=== PATIENT | male | born 1955 | race Caucasian/White ===

== ENCOUNTER 2024-01-07 18:39 | Emergency (ER) | payer MEDICARE, SELFPAY ==
[2024-01-07 18:41] VITALS: BP 165/104
[2024-01-07 19:23] VITALS: BMI 42.2
[2024-01-07 19:34] VITALS: BP 142/67
[2024-01-07 19:43] LABS: % Basophils 0.7 % (0-2); % Eosinophils 0.5 % (0-6); % Immature Granulocytes 0.5 % (0-0.5); % Lymphocytes 16.7 % (20.5-51.1); % Monocytes 7.6 % (1.7-9.3); Absolute Basophils 0.1 10^3/uL (0-0.2); Absolute Lymphocytes 1.4 10^3/uL (1.2-3.4); Absolute Monocytes 0.6 10^3/uL (0.1-0.6); Hematocrit 44.4 % (39.0-52.0); Hemoglobin 15.6 g/dL (13.0-18.0); Mean Corp Hgb Conc. 35.1 g/dL (33.0-37.0); Mean Corpuscular Hgb 30.1 pg (27.0-31.0); Mean Corpuscular Volume 85.5 fL (80.0-94.0); Mean Platelet Volume 9.4 fL (7.4-10.4); Nucleated Red Blood Cells % 0 % (-); Platelet Count 292 10^3/uL (130-400); Red Blood Cell Count 5.19 10^6/uL (4.70-6.10); Red Cell Dist. Width 12.6 % (11.5-14.5); White Blood Cell Count 8.2 10^3/uL (4.8-10.8)
[2024-01-07 19:56] LABS: ALT (SGPT) 23 U/L (0-50); AST (SGOT) 29 U/L (17-59); Albumin 4.6 g/dl (3.5-5.0); Alkaline Phosphatase 214 U/L (38-126); Blood Urea Nitrogen 26 mg/dl (9-20); Calcium 9.2 mg/dl (8.4-10.2); Carbon Dioxide 22 mmol/L (22-30); Chloride 103 mmol/L (98-107); Estimated Creatinine Clearance 91 ml/min; Glucose 136 mg/dl (70-99); Potassium 4.2 mmol/L (3.5-5.1); Sodium 140 mmol/L (135-145); Total Bilirubin 0.4 mg/dl (0.2-1.3); Total Protein 7.6 g/dl (6.3-8.2); eGFR > 60.00
[2024-01-07 20:00] VITALS: BP 122/74
--- NOTE | 2024-01-07 20:09 | ED.GENMED ---
History of Present Illness
General
Chief Complaint: Dizziness
Source: patient
Exam Limitations: none
Time Seen by Provider: 01/07/24 19:24
History of Present Illness
History of Present Illness:
This is a 68 year old male that comes in with c/o dizziness. States that this started at 3pm today and he has nausea and vomiting. States that the room was spinning. States that he broke out into a sweat when it first started. States that he is
nervous and is having palpitations. Denies any fever, chills, chest pain, SOB, abd pain, diarrhea, headache, urinary burning.
Past History
Past History
ED Past Medical History: HTN
ED Past Surgical History: Orthopedic (Left ankle surgery)
Social History
Tobacco: Smoker
Alcohol: Daily (Scotch 1-2 glasses)
Personal: (Same sex partner)
Living: with family
Review of Systems
Review of Systems
All Other Systems: ROS reviewed and negative except as documented in HPI and ROS
Constitutional: Reports no symptoms; Denies fever or chills
EENT: Reports no symptoms
Respiratory: Reports no symptoms; Denies cough or trouble breathing
Cardiac: Reports no symptoms; Denies chest pain
ABD/GI: Reports nausea and vomiting; Denies abdominal pain or diarrhea
: Reports no symptoms; Denies dysuria, frequency or urgency
Musculoskeletal: Reports no symptoms
Skin: Reports no symptoms
Neurological: Reports dizzy; Denies headache
Psychiatric: Reports no symptoms
Phy Exam
General Physical Exam
General Presentation: well appearing and no apparent distress
General age: appears stated age
General Skin: warm and dry
General Habitus: obese
General Mental: alert
General Hydration: dry mucous membranes
ENT Exam
ENT Exam: TM's normal, pharynx normal and neck supple
Eye Exam
Eye Exam: EOMI
Cardiovascular Exam
Cardiovascular Exam: regular rate/rhythm, no edema, no murmur and normal peripheral pulses
Pulmonary Exam
Pulmonary Exam: lungs clear, no respiratory distress, no rales, chest non tender, no crackles, no rhonchi, no wheezing and no cough
Gastrointestinal Exam
Gastrointestinal Exam: normal bowel sounds, non tender, soft, no organomegaly, no pulsatile mass and non distended
Musculoskeletal Exam
Musculoskeletal Exam: full ROM and no edema
Skin Exam
Skin Exam: normal color, warm/dry, no rash and no petechia
Psychiatric Exam
Psychiatric Exam: normal mood/affect
Course
Orders/Labs/Results
Orders:
Orders
01/07/24 18:49
ECG [Electrocardiogram (*1)] Urgent
Reason for Study: Vertigo / Dizzy
EKG- Treatment ONCE
01/07/24 19:35
Complete Blood Count/With Diff Urgent
Comprehensive Metabolic Panel Urgent
01/07/24 20:08
CT Head W/o Iv Contrast Urgent
Comment:
Reason For Exam: Dizziness
0.9% Sodium Chloride 500 ml [Nss] 500 ml IV BOLUS
Meclizine [Antivert] 50 mg PO NOW STA
Ondansetron Injectable [Zofran] 4 mg IV NOW STA
Abnormal Lab Results
01/07/24
19:35
Lymphocytes % 16.7 L %
(20.5-51.1)
BUN 26 H mg/dl
(9-20)
Glucose 136 H mg/dl
(70-99)
Alkaline Phosphatase 214 H U/L
(38-126)
01/07/24 19:35
01/07/24 19:35
Dehydration, Hyperglycemia. Alk phos elevation.
Vital Signs
Initial and Last Documented VS:
Initial Vital Signs
Pulse Resp BP Pulse Ox
83 20 165/104 99
01/07/24 18:41 01/07/24 18:41 01/07/24 18:41 01/07/24 18:41
Last Documented Vital Signs
Pulse Resp BP Pulse Ox
71 16 113/71 98
01/07/24 21:00 01/07/24 21:00 01/07/24 21:00 01/07/24 20:00
MDM/Problems Addressed
Differential Diagnosis Includes:
Vertigo,
MDM/Problems Addressed:
This is a 68 year old male that comes in with c/o dizziness which started at 3pm today. States that he feels like the room is spinning.
Will check labs, CT head and medicate with Zofran for his nausea/vomiting and Antivert for his dizziness.
Back into see patient. Patient states that he is feeling better. Got patient up and patient is stable on his feet and denies dizziness. Explained that this is most likely Vertigo. Will give patient a prescription for Antivert and discharge home.
Chronic conditions affecting care: HTN
Acute Exacerbation and/or Progression of Chronic Illness: HTN
*Radiology
Radiology exam reviewed: radiology read reviewed (CT head-NO CT evidence for acute intracranial hemorrhage or transcortical infarct. Moderate white matter leukoaraiosis in the frontla and parietal lobes. Mild to moderate diffuse cerebral and
cerebellar volume loss. [place] cisterna magna in the posterior fossa. No CT evidence for intracranial calcific) and other (CT cont-atherosclerotic disease. )
*Pulse Oximetry
Patient hypoxic: no
*EKG
Interpreted by ED Provider?: Yes
Heart Rate: 78
Rate: normal
Rhythm: sinus and PVC's
[place]: left axis deviation
Interval: normal interval
QRS Pattern: right bundle branch block
Ischemia: no ischemia
*Studio Set Up Worker Interpretation
Rate: normal
Heart Rate: 74
Rhythm: sinus and PVC's
*Critical Care Note
Total Time (30-74mins, 75-104mins- exclusive of procedures): Not Applicable
ED Attending Note
-
Portions of this chart may have been created with voice recognition software.� Occasional wrong word or��sound alike� substitutions may have occurred due to the inherent limitations of voice recognition software.
Discharge Plan
Departure
Patient Disposition: Home (Routine Discharge)
Date of Disposition: 01/07/24
Time of Disposition: 21:56
Patient with high blood pressure during this ER visit?: No
Condition: Good
Covid-19: Not Applicable
Discharge Problem:
Vertigo
Instructions: Vertigo (a Type of Dizziness) (DC)
Prescriptions:
New
meclizine [Antivert] 50 mg tablet
50 mg PO BID PRN (Reason: dizziness) Qty: 10 0RF
Referrals:
Earl Cobb PA-C [Family Provider] - Call in 1-3 days for appt
Activity Restrictions/Additional Instructions:
As discussed, your blood work shows that you are dehydrated. Please increase your water intake to 8-8oz glasses daily. Your CT of the head is normal. This is most likely Vertigo. You have had a prescription for Antivert sent to your pharmacy. Please
take this twice daily for the next 24-48 hours. IF you are feeling better and are no longer dizzy you may stop the medication and see how our feel. Follow up with the family doctor for recheck. IF YOU HAVE INCREASED DIZZINESS, OR YOU HAVE ANY OTHER
CONCERNS PLEASE RETURN TO THE EMERGENCY ROOM.
Interventions
Interventions:
*Risk Screen - Suicide Last Done: 01/07/24 18:45
*General Assessment Last Done: 01/07/24 18:45
*Neglect/Abuse Screening Last Done: 01/07/24 18:45
ED- Fall Risk Assessment Last Done: 01/07/24 19:35
*ED COVID-19 Vaccine History Last Done: 01/07/24 18:46
ED- Neurological Assessment Last Done: 01/07/24 19:34
ED- Cardiac Assessment Last Done: 01/07/24 19:34
ED Swallowing Screen Last Done: 01/07/24 20:10
Discharge Date and Time
Print Language: MALAY
[2024-01-07] MEDS: NSS 500 IV (20:25)
[2024-01-07] MEDS: ZOFRAN 4 MG IV (20:26)
[2024-01-07] MEDS: ANTIVERT 50 MG PO (20:26)
[2024-01-07 21:00] VITALS: BP 113/71
== END 2024-01-07 22:15 | disposition home or self-care (01) ==
LOC: EMR 18:39
PROVIDERS: Emergency Medicine; EMERGENCY PHYSICIAN Emergency Medicine; FAMILY PHYSICIAN Physician Assistant Medical
DX: R42 Dizziness and giddiness (principal); I10 Essential (primary) hypertension; F17.200 Nicotine dependence, unspecified, uncomplicated
CPT/HCPCS: 99285; 96374; 70450; 80053; 85025; 93005

== ENCOUNTER 2025-01-16 11:36 | Emergency (ER) | payer MEDICARE, SELFPAY ==
[2025-01-16] VITALS (7 sets, daily range): BP systolic 131–204; BP diastolic 77–98; BMI 38.6
--- NOTE | 2025-01-16 13:19 | ED.GENMED ---
History of Present Illness
<HNOG Barone - Last Filed: 01/19/25 12:01>
General
Chief Complaint: Heart Rate Problem
Source: patient
Exam Limitations: none
Time Seen by Provider: 01/16/25 12:45
Nursing documentation reviewed up to this point in time: agreed with
History of Present Illness
History of Present Illness:
Pt is a 69 yr old male with HTN, depression presents to the ER for evaluation. Patient reports for the past week he has had intermittent shortness of breath with exertion. He denies any chest pain. He denies any extremity swelling. He has no
cardiac history. No recent fever chills or cough.
Past History
<HONG Barone - Last Filed: 01/19/25 12:01>
Past History
ED Past Medical History: HTN
ED Past Surgical History: Orthopedic (Left ankle surgery)
Social History
Tobacco: Smoker
Alcohol: Daily (Scotch 1-2 glasses)
Personal: (Same sex partner)
Living: with family
Phy Exam
<HONG Barone - Last Filed: 01/19/25 12:01>
General Physical Exam
General Presentation: no apparent distress
General age: appears stated age
General Skin: warm and dry
General Habitus: normal
General Mental: alert
General Hydration: appears well hydrated
Cardiovascular Exam
Cardiovascular Exam: regular rate/rhythm, no murmur and normal peripheral pulses
Pulmonary Exam
Pulmonary Exam: lungs clear and no respiratory distress
Neurological Exam
Neurological Exam: alert and oriented x3
Musculoskeletal Exam
Musculoskeletal Exam: full ROM
Skin Exam
Skin Exam: normal color and warm/dry
Psychiatric Exam
Psychiatric Exam: normal mood/affect
Course
<HONG Barone - Last Filed: 01/19/25 12:01>
Orders/Labs/Results
Orders:
Orders
01/16/25 11:36
Electrocardiogram (*1) Urgent
Reason for Study: Shortness of Breath
01/16/25 11:37
EKG- Treatment ONCE
01/16/25 13:19
Complete Blood Count/With Diff Urgent
Comprehensive Metabolic Panel Urgent
Magnesium Urgent
Comment: ADD ON
NT-proBNP Urgent
Comment: ADD ON
TSH Reflex To Free T4 Urgent
Comment: ADD ON
Troponin I Urgent
01/16/25 13:20
Add On- LAB Urgent
Tests Added?: tsh with reflexive T4
01/16/25 15:13
Add On- LAB Urgent
Tests Added?: cardiac BNP
Chest [CR Chest - 2 Views ] Urgent
Comment:
Reason For Exam: SOB
01/16/25 15:18
Add On- LAB Urgent
Tests Added?: magnesium
01/16/25 16:00
D-Dimer Urgent
01/16/25 16:43
CT Chest PE Study Urgent
Comment:
Reason For Exam: dyspnea
01/16/25 17:15
Electrocardiogram (*1) Urgent
Reason for Study: Chest Pain
EKG- Treatment ONCE
01/16/25 17:29
Troponin I Urgent
Abnormal Lab Results
01/16/25 01/16/25
13:19 16:00
Absolute Monos (auto) 0.8 H 10^3/uL
(0.1-0.6)
Monocytes % 11.1 H %
(1.7-9.3)
D-Dimer 0.80 H ug/mlFEU
(0.00-0.50)
Glucose 115 H mg/dl
(70-99)
Alkaline Phosphatase 186 H U/L
(38-126)
01/16/25 13:19
01/16/25 13:19
Vital Signs
Initial and Last Documented VS:
Initial Vital Signs
Temp Pulse Resp BP Pulse Ox
98.2 F 50 16 204/94 97
01/16/25 11:47 01/16/25 11:47 01/16/25 11:47 01/16/25 11:47 01/16/25 11:47
Last Documented Vital Signs
Temp Pulse Resp BP Pulse Ox
98.2 F 74 18 144/90 98
01/16/25 18:02 01/16/25 19:22 01/16/25 19:22 01/16/25 20:37 01/16/25 18:02
Pulp Refiner Operator consulted with Physician
Pulp Refiner Operator consulted with physician?: Yes
Name of Physician Consulted: Ritah
<John Arias MD - Last Filed: 01/16/25 20:33>
Orders/Labs/Results
Orders:
Orders
01/16/25 11:36
Electrocardiogram (*1) Urgent
Reason for Study: Shortness of Breath
01/16/25 11:37
EKG- Treatment ONCE
01/16/25 13:19
Complete Blood Count/With Diff Urgent
Comprehensive Metabolic Panel Urgent
Magnesium Urgent
Comment: ADD ON
NT-proBNP Urgent
Comment: ADD ON
TSH Reflex To Free T4 Urgent
Comment: ADD ON
Troponin I Urgent
01/16/25 13:20
Add On- LAB Urgent
Tests Added?: tsh with reflexive T4
01/16/25 15:13
Add On- LAB Urgent
Tests Added?: cardiac BNP
Chest [CR Chest - 2 Views ] Urgent
Comment:
Reason For Exam: SOB
01/16/25 15:18
Add On- LAB Urgent
Tests Added?: magnesium
01/16/25 16:00
D-Dimer Urgent
01/16/25 16:43
CT Chest PE Study Urgent
Comment:
Reason For Exam: dyspnea
01/16/25 17:15
Electrocardiogram (*1) Urgent
Reason for Study: Chest Pain
EKG- Treatment ONCE
01/16/25 17:29
Troponin I Urgent
Abnormal Lab Results
01/16/25 01/16/25
13:19 16:00
Absolute Monos (auto) 0.8 H 10^3/uL
(0.1-0.6)
Monocytes % 11.1 H %
(1.7-9.3)
D-Dimer 0.80 H ug/mlFEU
(0.00-0.50)
Glucose 115 H mg/dl
(70-99)
Alkaline Phosphatase 186 H U/L
(38-126)
01/16/25 13:19
01/16/25 13:19
Vital Signs
Initial and Last Documented VS:
Initial Vital Signs
Temp Pulse Resp BP Pulse Ox
98.2 F 50 16 204/94 97
01/16/25 11:47 01/16/25 11:47 01/16/25 11:47 01/16/25 11:47 01/16/25 11:47
Last Documented Vital Signs
Temp Pulse Resp BP Pulse Ox
98.2 F 74 18 144/90 98
01/16/25 18:02 01/16/25 19:22 01/16/25 19:22 01/16/25 20:37 01/16/25 18:02
<HONG Barone - Last Filed: 01/19/25 12:01>
MDM/Problems Addressed
Differential Diagnosis Includes:
Not limited to anemia URI bronchitis PE CHF
MDM/Problems Addressed:
69-year-old male complains of intermittent shortness of breath with exertion. No chest pain no shortness of breath. Patient presents with PVCs here in the ER initially in [facility] in the ER and [facility]. He is in no acute distress here denies any
fevers his white count is normal he is afebrile stable hemoglobin. Electrolytes unremarkable. Patient with no chest pain initial cardiac troponin 0.020 this was repeated BNP low. X-ray shows questionable pneumonia however patient denies any
recent cough just reports he is clearing his throat a lot. Patient was eval by ED physician D-dimer ordered and elevated CT pending at this time. Care of patient transferred to Dr. Arias. I did review patient's EKG of [facility] with cardiology,
Luis Carlos Hendrickson and as discussed with cardiology they are monomorphic no need for any additional treatment at this time will need echo as follow-up.
Chronic conditions affecting care:
htn
<HONG Barone - Last Filed: 01/19/25 12:01>
*Radiology
Radiology exam reviewed: radiology read reviewed
*Pulse Oximetry
SaO2: 97
Oxygen Mode of Delivery: Room air
Patient hypoxic: no
*Critical Care Note
Total Time (30-74mins, 75-104mins- exclusive of procedures): Not Applicable
ED Attending Note
<HONG Barone - Last Filed: 01/19/25 12:01>
-
Portions of this chart may have been created with voice recognition software.� Occasional wrong word or��sound alike� substitutions may have occurred due to the inherent limitations of voice recognition software.
<John Arias MD - Last Filed: 01/16/25 20:33>
ED Attending Note
Patient seen and examined by attending physician: Yes
ED Attending Note:
Patient with history of hypertension and depression, presents to ED secondary to shortness of breath with exertion over the past couple of months. Patient states that for the past 1 year, he has been dealing with vertigo, which has greatly affected
his lifestyle, i.e. daily walk and exercise. As such, he has been less active and has gained weight. Recently, he has noticed, that with any significant exertion, he will feel short of breath, which improves when he slows down. Denies associated
chest pain, dizziness, diaphoresis, or chest palpitations. He was evaluated by his primary care physician secondary to ongoing dizziness due to vertigo, when he mentioned his symptoms. His primary care physician examined him and noted 'irregular
heartbeats', and referred patient to ED for an evaluation. Denies recent illness. Denies recent change in medications or diet. Denies recent travel or surgery. Denies leg pain or swelling. Denies family history of blood clots. Patient does
report drinking scotch every night, but has not increased consumption recently. At the time of evaluation ED, while lying in stretcher, patient states that he has no symptoms.
Physical Exam
General: no apparent distress, not acutely ill. afebrile. overweight
Head: nc/at. eomi
Neck: supple. normal range of motion
Heart: s1/s2 regular rate and rhythm. no murmur
Lungs: no acute respiratory distress. clear bilaterally
Abdomen: normal bowel sounds. not tender.
Neuro: alert and oriented x 3. no focal neurological deficits
Skin: no rash
Psychiatric: well kept. interactive and cooperative
Extremities: no edema. no calf tenderness.
During ambulation, patient noted to become mildly short of breath with tachypnea. As such, along with mildly elevated D-dimer, decision made to obtain CT angiogram, to evaluate for potential pulmonary embolism.
CT chest report reviewed and discussed with patient. As patient recently started on doxycycline by primary care physician due to your infection, that we will also potentially cover for pneumonia noted on CT scan. In addition, PVCs discussed with
patient as well as on-call cardiology, Dr. Hendrickson, who recommended patient follow-up with cardiology as an outpatient.
Patient otherwise is afebrile, hemodynamically stable, and appears comfortable, at time of discharge, to the care of his partner.
Discharge Plan
Departure
Patient Disposition: Home (Routine Discharge)
Date of Disposition: 01/16/25
Time of Disposition: 20:30
Patient with high blood pressure during this ER visit?: Yes
Condition: Fair
Discharge Problem:
Dyspnea, Premature ventricular contraction
Instructions: Shortness of breath in adults - ED (DC), Premature Ventricular Contraction
Prescriptions:
No Action
meclizine [Antivert] 50 mg tablet
50 mg PO BID PRN (Reason: dizziness) Qty: 10 0RF
Referrals:
Ric Cohn MD [Active, Pulmonary Medicine]
Jeff Pruitt MD [Family Provider, Internal Medicine]
Alyssia Hendrickson MD [Active, Cardiology]
Activity Restrictions/Additional Instructions:
As discussed, please follow-up with your primary care physician, as well as referred spa associate for further evaluation and treatment.
Interventions
Interventions:
*Risk Screen - Suicide Last Done: 01/16/25 11:47
*General Assessment Last Done: 01/16/25 13:37
*Neglect/Abuse Screening Last Done: 01/16/25 11:47
*ED- Fall Risk Assessment Last Done: 01/16/25 13:37
*ED COVID-19 Vaccine History Last Done: 01/16/25 13:37
*ED Influenza Vaccine History Last Done: 01/16/25 13:37
*Nursing Disposition Last Done: 01/16/25 20:40
ED- Cardiac Assessment Last Done: 01/16/25 13:37
ED- Pulmonary Assessment Last Done: 01/16/25 13:37
Discharge Date and Time
Discharge Date/Time: 01/16/25 20:41
Print Language: SWEDISH
[2025-01-16 13:27] LABS: Hematocrit 42.6 % (39.0-52.0); Hemoglobin 14.7 g/dL (13.0-18.0); Mean Corp Hgb Conc. 34.5 g/dL (33.0-37.0); Mean Corpuscular Volume 86.9 fL (80.0-94.0); Nucleated Red Blood Cells % 0 % (-); Platelet Count 282 10^3/uL (130-400); Red Cell Dist. Width 13.2 % (11.5-14.5)
[2025-01-16 13:49] LABS: ALT (SGPT) 25 U/L (0-50); AST (SGOT) 28 U/L (17-59); Albumin 4.0 g/dl (3.5-5.0); Alkaline Phosphatase 186 U/L (38-126); Blood Urea Nitrogen 19 mg/dl (9-20); Calcium 9.1 mg/dl (8.4-10.2); Carbon Dioxide 25 mmol/L (22-30); Chloride 106 mmol/L (98-107); Estimated Creatinine Clearance 74 ml/min; Glucose 115 mg/dl (70-99); Potassium 4.3 mmol/L (3.5-5.1); Sodium 136 mmol/L (135-145); Total Protein 7.1 g/dl (6.3-8.2); eGFR > 60.00
[2025-01-16 14:02] LABS: Troponin I 0.020 ng/ml
[2025-01-16 15:55] LABS: Magnesium 1.8 mg/dl (1.6-2.3)
[2025-01-16 16:17] LABS: D-Dimer 0.80 ug/mlFEU (0.00-0.50)
[2025-01-16 18:18] LABS: Troponin I 0.030 ng/ml
== END 2025-01-16 20:41 | disposition home or self-care (01) ==
LOC: EMR 11:36
PROVIDERS: Nurse Practitioner; Student in an Organized Health Care Education/Training Program; EMERGENCY PHYSICIAN Emergency Medicine; FAMILY PHYSICIAN Student in an Organized Health Care Education/Training Program
DX: R06.02 Shortness of breath (principal); I49.3 Ventricular premature depolarization; I10 Essential (primary) hypertension; F32.A Depression, unspecified; F17.200 Nicotine dependence, unspecified, uncomplicated
CPT/HCPCS: 99284; 71046; 71275; 80053; 83735; 83880; 84443; 84484; 85025; 85379; 93005; Q9967